=== PATIENT | male | born 1960 | race Caucasian/White ===

== ENCOUNTER → 2016-12-15 | Day surgery (SDC) | payer OTHER ==
[~2016-12-15] MED LIST: ASPIRIN EC 325 MG TAB PO ONE; DIAZEPAM 5 MG TAB ONE; DIAZEPAM 5 MG TAB PO ONE; ETOMIDATE 40 MG/20 ML INJ ONE; FAMOTIDINE 20 MG TAB ONE; FAMOTIDINE 20 MG TAB PO ONE; HEPARIN 10,000 UNIT/10 ML MDV ONE; IOPAMIDOL (ISOVUE-370) 150 ML BTL IV ONE; LIDOCAINE 1% 300 MG/30 ML SDV ONE; MIDAZOLAM 2 MG/2 ML VIAL ONE; NS 1,000 ML IV ONE; VERAPAMIL 5 MG/2 ML VIAL ONE; diphenhydrAMINE 25 MG CAP PO ONE; fentaNYL 100 MCG/2 ML INJ ONE
--- NOTE | 2016-12-15 07:55 | CPEKG ---
Heart Rate: 72 RR Interval: 833 P-R Interval: 200 QRSD Interval: 96 QT Interval: 404 QTC Interval: 443 P [place]: 54 QRS [place]: -67 T Wave [place]: 42 EKG Severity - ABNORMAL ECG - EKG Impression: SINUS RHYTHM EKG Impression: LEFT ANTERIOR FASCICULAR BLOCK Electronically Signed By: Valentin Nieto 16-Dec-2016 07:22:53
[2016-12-15 08:13] LABS: % IMMATURE GRANULYOCYTES 0.3 % (0.0-1.1); ABSOLUTE IMMATURE GRANULOCYTES 0.02 10^3/uL (0.00-0.10); ADD DIFF? NO; ADD MORPH? NO; ADD SCAN? NO; ATYPICAL LYMPHOCYTE FLAG 0 (0-99); FRAGMENT RBC FLAG 0 (0-99); HEMATOCRIT 45.9 % (40.0-51.0); HEMOGLOBIN 15.9 g/dL (13.7-17.5); LEFT SHIFT FLG 0 (0-99); LIPEMIA HEMOLYSIS FLAG 90 (0-99); MEAN CELL HEMOGLOBIN 30.5 pg (27.9-34.1); MEAN CELL HEMOGLOBIN CONCENTR. 34.6 g/dL (32.4-36.7); MEAN CELL VOLUME 88.1 fL (81.5-99.8); MEAN PLATELET VOLUME 10.8 fL (8.7-11.7); PLATELET CLUMPS FLAG 0 (0-99); PLATELET COUNT 268 10^3/uL (150-400); RED BLOOD CELL COUNT 5.21 10^6/uL (4.40-6.38); RED CELL DISTRIBUTION WIDTH 12.8 % (11.5-15.2)
[2016-12-15 08:22] LABS: INR 1.13 (0.83-1.16); PROTIME(PATIENT) 14.4 SEC (12.0-15.0)
[2016-12-15 08:46] LABS: ANION GAP 16 mEq/L (8-16); CALCIUM 9.4 mg/dL (8.5-10.4); CARBON DIOXIDE 19 mEq/l (22-31); CHLORIDE 102 mEq/L (97-110); CHOLESTEROL 120 mg/dL (140-220); CHOLESTEROL/HDL RATIO 2.07 RATIO (1.00-4.97); GLOMERULAR FILTRATION RATE > 60; GLUCOSE 69 mg/dL (70-100); HIGH DENSITY LIPOPROTEIN 58 mg/dL (40-65); LDL/HDL RATIO 0.86 RATIO (1.00-3.64); LOW DENSITY LIPOPROTEIN 50 mg/dL (80-100); MAGNESIUM 2.1 mg/dL (1.6-2.3); NON-HIGH DENSITY LIPOPROTEIN 62 mg/dL (90-129); POTASSIUM 4.3 mEq/L (3.5-5.2); SODIUM 137 mEq/L (134-144); TRIGLYCERIDE 62 mg/dL (40-150); VERY LOW DENSITY LIPOPROTEINS 12 mg/dL (8-25)
--- NOTE | 2016-12-15 10:58 | PDDXCAT ---
Diagnostic Cath Note - . Date: 12/15/16 Drying Machine Tender: Nava Intervention: none *Procedure 1. selective coronary angiography 2.left heart catheterization Indication: CCS Class IV Angina, Coronary artery disease with a calcium score > 400, Intermediate risk stress test Access: right radial *Materials Left Heart Cath size: 5F Left Heart Cath materials: JR4.0, JL3.5, pigtail *Findings- Selective Coronary Angiography LM: The Left Main is ~6 mm in size. It trifurcates into an LAD, Ramus and circumflex system. There is no evidence of flow-limiting obstruction and there is CAYDEN III flow throughout. LAD: The proximal LAD is ~3 mm in size. There is a 30% lesion at the ostium of the LAD. There is dense calcification noted in the proximal third of the LAD in the cinefluoroscopy consistent with underlying atherosclerosis. No flow- limiting obstruction identified and there is CAYDEN III flow throughout. The principle diagonal is also diffusely diseased. The maximal luminal stenosis is 30%. LCX: The LCX is ~3 mm in size and it immediately bifurcates into a large obtuse marginal branch, which is 2.75 mm in size and provides most of the blood flow to the posterior lateral aspect of the patient's heart, and to the circumflex proper. This is a small vessel, <2 mm in size and it has defuse luminal irregularities consistent with atherosclerosis. There is no evidence of flow- limiting obstruction. CAYDEN III flow throughout. RCA: The RCA is ~2.5 mm in size and it is dominant. There is a 50% lesion just distal to the RV branch by QCA.There is another 50% lesion distal to the acute marginal branch of the RCA. There is CAYDEN III flow. Ramus: The Ramus vessel is quite small and is ~1 mm in size. There is CAYDEN III flow throughout. *Findings- Left Heart Catheterization LVEDP: 18 mmHg AO: 111/62/84 mmHg LVEF: 65% LVG: The basal inferior wall is mildly tardikinetic, otherwise no segmental wall motion abnormalities. There is evidence of 2+ mitral regurgitation under pressurized injection which also was associated with ventricular ectopy. There is no evidence of Mitral valve prolapse. The visualized porion of thoracic aorta is normal in size with 3 sinuses of Valsalva most consistent with a trileaflet aortic valve. *Summary Complications: None Estimated Blood Loss: <50 ml. Closure Method: Assessment/Conclusion: 1. The patient has evidenced of diffuse atherosclerosis and is therefore at risk of a cardiac event including acute myocardial infarction. Aggressive risk factor modification 2. 7-14 day monitor 3.
== END | disposition home or self-care (01) ==
LOC: FCATH 07:32
PROVIDERS: ATTEND Internal Medicine Cardiovascular Disease
PROC: B2151ZZ Fluoroscopy of Left Heart using Low Osmolar Contrast (ICD-10-PCS; principal; 2016-12-15)
PROC: 4A023N7 Measurement of Cardiac Sampling and Pressure, Left Heart, Percutaneous Approach (ICD-10-PCS; principal; 2016-12-15)
PROC: B2111ZZ Fluoroscopy of Multiple Coronary Arteries using Low Osmolar Contrast (ICD-10-PCS; principal; 2016-12-15)
DX: I25.119 Atherosclerotic heart disease of native coronary artery with unspecified angina pectoris (principal); N52.9 Male erectile dysfunction, unspecified; I10 Essential (primary) hypertension; K21.9 Gastro-esophageal reflux disease without esophagitis; E78.00 Pure hypercholesterolemia, unspecified
CPT/HCPCS: C1887; J1644; J2250; J3010; Q9967

== ENCOUNTER → 2018-05-09 | Outpatient (CLI) | payer OTHER | LOC: FIMAGING 09:29 | PROVIDERS: ATTEND Specialist | DX: C61 Malignant neoplasm of prostate (principal); R94.8 Abnormal results of function studies of other organs and systems; M85.812 Other specified disorders of bone density and structure, left shoulder | CPT/HCPCS: 73030; 78306; A9503 ==

== ENCOUNTER → 2018-05-16 | Outpatient (CLI) | payer OTHER ==
[~2018-05-16] MED LIST changes: -ASPIRIN EC 325 MG TAB PO ONE; -DIAZEPAM 5 MG TAB ONE; -DIAZEPAM 5 MG TAB PO ONE; -ETOMIDATE 40 MG/20 ML INJ ONE; -FAMOTIDINE 20 MG TAB ONE; -FAMOTIDINE 20 MG TAB PO ONE; +GADOBUTROL 10 ML VIAL IVP ONE; -HEPARIN 10,000 UNIT/10 ML MDV ONE; -IOPAMIDOL (ISOVUE-370) 150 ML BTL IV ONE; -LIDOCAINE 1% 300 MG/30 ML SDV ONE; -MIDAZOLAM 2 MG/2 ML VIAL ONE; -NS 1,000 ML IV ONE; -VERAPAMIL 5 MG/2 ML VIAL ONE; -diphenhydrAMINE 25 MG CAP PO ONE; -fentaNYL 100 MCG/2 ML INJ ONE
== END | disposition home or self-care (01) ==
LOC: FIMAGING 12:40
PROVIDERS: ATTEND Specialist
DX: M89.9 Disorder of bone, unspecified (principal); S46.012A Strain of muscle(s) and tendon(s) of the rotator cuff of left shoulder, initial encounter; M75.52 Bursitis of left shoulder; C61 Malignant neoplasm of prostate
CPT/HCPCS: A9585

== ENCOUNTER 2018-06-14 05:35 | Inpatient (IN) | payer OTHER ==
--- NOTE | 2018-06-13 08:39 | GHP ---
[f rep st] PREOP HISTORY AND PHYSICAL HISTORY OF PRESENT ILLNESS: This is a 58-year-old gentleman, who has adenocarcinoma of the prostate. He has had a biopsy of the prostate and has proven T2b cancer, and he has an MRI that notes no pelvic or bone pathology. The capsule was intact. The right seminal vesicle may have a suspicious area, yet not overly concerning. He had a left proximal humerus lesion on an MRI and the MRI revealed that he had a benign endochondroma and a repeat x-ray of that in 6 months is recommended. His PSA as of 02/02/2018, was 19.5, and his MRI of 04/27 had a PI-RADS score of 4, and he had a prostate volume in 04/2018 of 56, and his pathology revealed a [employer] score 8 adenocarcinoma of the prostate. At the present time after a discussion of treatment options, he has planned on undergoing a radical prostatectomy with bilateral lymphadenectomy. The indications, complications, and options been discussed, and he appears to be well informed and he is admitted for the above procedure. PAST MEDICAL HISTORY: He has had some erectile dysfunction, elevated PSA, cardiac disease, hypertension, hypercholesterolemia, and the lesion noted on the left humerus. PAST SURGICAL HISTORY: Appendectomy, vasectomy. MEDICATIONS: Aspirin, supplements. ALLERGIES: Tetracycline. FAMILY HISTORY: Heart disease, prostate cancer, hypertension, liver cancer, diabetes. SOCIAL HISTORY: Current alcohol consumption mild. Nonsmoker. No substance use or abuse. REVIEW OF SYSTEMS: CARDIAC: Negative. RESPIRATORY: Negative. GI: Negative. ENDOCRINE: Negative. PHYSICAL EXAMINATION: VITAL SIGNS: Stable. CHEST: Clear. HEART: Regular rate and rhythm. ABDOMEN: Normal. No organomegaly, rebound or guarding. RECTAL: Normal rectal vault and prostate was nontender. Size is as noted above. Bilaterally symmetric. Normal palpable prostate with no fixation of the pelvis or rectum on exam. SKIN INSPECTION: Normal. NEUROLOGIC: Normal. ASSESSMENT AND PLAN: At the present time, he is admitted for a radical prostatectomy for the new diagnosis of prostate cancer, Hamida score 8, and he appears to be well informed and has given written and verbal consent. Copy requested to: Dr. Nava Mott /[id number]/MODL MTDD
[2018-06-14] MEDS ORDERED: LIDOCAINE 1% 2 ML INJ ID PRN (06:02)
[2018-06-14] MEDS ORDERED: LR 1,000 ML IV ONE (06:02)
[2018-06-14] MEDS ORDERED: ceFAZolin 2 GM/DEXTROSE 100 ML IV ONE (06:02)
--- NOTE | 2018-06-14 06:50 | PDANEPAE ---
ANE History of Present Illness prostate cancer ANE Past Medical History - Cardiovascular History Hx Hypertension: Yes Hx Arrhythmias: No Hx Chest Pain: No Hx Coronary Artery / Peripheral Vascular Disease: Yes Hx CHF / Valvular Disease: No Hx Palpitations: No - Pulmonary History Hx COPD: No Hx Asthma/Reactive Airway Disease: No Hx Recent Upper Respiratory Infection: No Hx Oxygen in Use at Home: No Hx Sleep Apnea: Yes Sleep Apnea Screening Result - Last Documented: Positive - Neurologic History Hx Cerebrovascular Accident: No Hx Seizures: No Hx Dementia: No Neurologic History Comment: febrile seizures as - Endocrine History Hx Diabetes: No Hypothyroid: No Hyperthyroid: No Obesity: no - Renal History Hx Renal Disorders: No - Liver History Hx Hepatic Disorders: No - Neurological & Psychiatric Hx Hx Neurological and Psychiatric Disorders: Yes Neurological / Psychiatric History Comment: tremor in left hand. right quad intermittently tingles - Cancer History Hx Cancer: Yes Cancer History Comment: prostate - Congenital Disorder History Hx Congenital Disorders: No - GI History GERD: no Hx Gastrointestinal Disorders: No - Other Health History Other Health History: tinnitus both ears - Chronic Pain History Chronic Pain: No - Surgical History Prior Surgeries: 1980 craniotomy. 1981 appendectomy ANE Review of Systems Review of systems is: negative Review of Systems: - Exercise capacity METS (RN): 5 METS ANE Patient History - Allergies Allergies/Adverse Reactions: tetracycline Allergy (Unknown, Verified 05/18/18 15:54) Other-Enter Comments - Home Medications Home medications: home medication list seen and reviewed Home Medications: Aspirin [Aspirin 81mg (*)] 162 mg PO DAILY 12/15/16 [Last Taken 06/03/18] Cholecalciferol Vit D3 [Vitamin D3 (*)] 1,000 units PO BID 12/15/16 [Last Taken 06/03/18] Ezetimibe [Zetia 10 MG (*)] 10 mg PO DAILY 12/15/16 [Last Taken 06/13/18] Herbals/Supplements -Info Only 1 ea PO DAILY 12/15/16 [Last Taken 06/03/18] Lisinopril [Zestril 10 mg (*)] 10 mg PO DAILY 12/15/16 [Last Taken 06/13/18] Dovray-3 Fatty Acids [Fish Oil 1000 mg (*)] 1,000 mg PO BID 12/15/16 [Last Taken 06/03/18] Rosuvastatin Calcium [Crestor 10mg (RX)] 10 mg PO DAILY 05/18/18 [Last Taken 10/24] Tadalafil [Cialis] 5 mg PO DAILY PRN 05/18/18 [Last Taken 06/01/18] - NPO status NPO Status: no food or drink >8 hours NPO Since - Liquids (Date): 06/13/18 NPO Since - Liquids (Time): 18:30 NPO Since - Solids (Date): 06/10/18 NPO Since - Solids (Time): 18:00 - Anes Hx Anes Hx: no prior problems - Smoking Hx Smoking Status: Never smoked - Alcohol Use Alcohol Use: Rarely - Family Anes Hx Family Anes Hx: none Family Hx Anesthesia Complications: father severe nausea/vomiting ANE Labs/Vital Signs - Vital Signs Blood Pressure: 124/72 Heart Rate: 80 Respiratory Rate: 18 O2 Sat (%): 94 Height: 177.8 cm Weight: 92.986 kg ANE Physical Exam - Airway Neck exam: FROM Mallampati Score: Class 2 Mouth exam: normal dental/mouth exam - Pulmonary Pulmonary: no respiratory distress, clear to auscultation - Cardiovascular Cardiovascular: regular rate and rhythym, no murmur, rub, or gallop - ASA Status ASA Status: II ANE Anesthesia Plan Anesthesia Plan: general endotracheal anesthesia
[2018-06-14] MEDS ORDERED: PROPOFOL 200 MG/20 ML VIAL ONE (06:55)
[2018-06-14] MEDS ORDERED: ROCURONIUM 50 MG/5 ML VIAL ONE (06:55)
[2018-06-14] MEDS ORDERED: LIDOCAINE 2% 5 ML SDV ONE (06:55)
[2018-06-14] MEDS ORDERED: fentaNYL 250 MCG/5 ML INJ ONE (06:55)
[2018-06-14] MEDS ORDERED: ROCURONIUM 100 MG/10 ML VIAL ONE ×2 (06:56→08:44)
--- NOTE | 2018-06-14 07:01 | PDHPUP ---
History & Physical Update H&P update statement: This history and physical update is based on an assessment of the patient which was completed after admission or registration (within 24 hours), but prior to the surgery/procedure. H&P update: H&P reviewed & patient examined, no change in patient's condition since H&P completed
[2018-06-14] MEDS ORDERED: BUPIVACAINE 0.5% 30 ML SDV ONE (07:56)
[2018-06-14] MEDS ORDERED: SURGIFLO MATRIX KIT WITH THROMBIN 8 ML TP ONE (09:12)
[2018-06-14] MEDS ORDERED: THROMBIN(HUM PLAS)/FIBRINOG/CA 5 ML VIAL TP ONE (09:12)
[2018-06-14] MEDS ORDERED: DEXAMETHASONE 4 MG/ML VIAL ONE (10:05)
[2018-06-14] MEDS ORDERED: HYDROmorphONE/DILAUDID 2 MG/ML INJ IVP PRN (10:25)
[2018-06-14] MEDS ORDERED: NALOXONE HCL 0.4 MG/ML INJ IVP PRN ×3 (10:25→14:01)
[2018-06-14] MEDS ORDERED: MEPERIDINE 25 MG/0.5 ML AMP IVP PRN (10:25)
[2018-06-14] MEDS ORDERED: PROMETHAZINE HCL 25 MG/ML INJ IVP PRN (10:25)
[2018-06-14] MEDS ORDERED: LR 500 ML IV PRN (10:25)
[2018-06-14] MEDS ORDERED: fentaNYL 100 MCG/2 ML INJ IVP PRN (10:25)
[2018-06-14] MEDS ORDERED: ONDANSETRON 4 MG/2 ML VIAL IVP PRN ×2 (10:25→11:24)
--- NOTE | 2018-06-14 10:25 | POSTANESTH ---
Post Anesthetic Evaluation Cardiovascular Status: Normal, Stable Respiratory Status: Normal, Stable Level of Consciousness/Mental Status: Can Participate in Eval, Moderately Sleepy Pain Control: Adequate, Prn Tx Ordered Nausea/Vomiting Control: Adequate, Prn Tx Ordered Complications Possibly Related to Anesthesia: None Noted
[2018-06-14] MEDS ORDERED: BUPIVACAINE 0.25% 30 ML SDV ONE (10:28)
[2018-06-14] MEDS ORDERED: BUPIVACAINE/EPI 0.5% 30 ML SDV ONE (10:28)
[2018-06-14] MEDS ORDERED: NEOSTIGMINE METHYLSULFATE 5 MG/5 ML SYR ONE (10:31)
[2018-06-14] MEDS ORDERED: ONDANSETRON 4 MG/2 ML VIAL ONE (10:31)
[2018-06-14] MEDS ORDERED: GLYCOPYRROLATE 0.2 MG/1 ML VIAL ONE ×2 (10:31)
[2018-06-14] MEDS ORDERED: fentaNYL 100 MCG/2 ML INJ ONE (10:48)
[2018-06-14] MEDS ORDERED: ZOLPIDEM TARTRATE 5 MG TAB PO PRN (11:24)
[2018-06-14] MEDS ORDERED: HYDROmorphONE/DILAUDID 6 MG/30 ML PCA IV PRN (11:24)
[2018-06-14] MEDS ORDERED: ACETAMINOPHEN 325 MG TAB PO PRN (11:24)
[2018-06-14] MEDS ORDERED: ONDANSETRON DISINTEGRATING 4 MG TAB PO PRN (11:24)
--- NOTE | 2018-06-14 11:24 | POSTOPPROG ---
Post Op Note Date of Operation: 06/14/18 (dictated) Surgeon: Mnaoj Price Second Language Tutor: Emerita Gaines Anesthesia: GET(General Endotracheal) Pre-op Diagnosis: prostate cancer Procedure: RA-RRP and PLND Inf/Abcess present in the surg proc area at time of surgery?: No EBL: 50-100 Drains: Onesimo Collins, Other (slade) Specimen(s): nodes, prostate
--- NOTE | 2018-06-14 11:28 | GOP ---
[f rep st] OPERATIVE REPORT DATE OF OPERATION: 06/14/2018 SURGEON: Manoj Price MD SANITARY AIDE: Emerita Gaines CFA. PREOPERATIVE DIAGNOSIS: Prostate cancer. POSTOPERATIVE DIAGNOSIS: Prostate cancer. PROCEDURE PERFORMED: Robotic-assisted radical prostatectomy and bilateral pelvic lymph node dissecti on. FINDINGS: SPECIMENS: Bilateral lymph nodes as well as the prostate and seminal vesicles. He will be admitted for postoperative care. I will discuss the issues with his . ESTIMATED BLOOD LOSS: Per Anesthesia. DESCRIPTION OF PROCEDURE: After undergoing general anesthesia, being prepped and draped in normal st erile fashion in the appropriate position for the robot to come in between the legs, the time-out was made and was appropriate. At that point, a supraumbilical incision was made and a Veress needle reed augusto into his abdomen and the intraabdominal pressure insufflated to 15 mmHg pressure. Then I was abl e to pass a 12 mm camera port under direct vision and then placed the three 8 mm robot arm ports, and a 12 mm advertising assistant manager port. Inspection of the abdomen revealed no intraabdominal adhesions or pathology and I was able to identify the vas deferens and carried the incision over the peritoneum over those down to where they course into the posterior prostatic space and dissected the rectum off the posteri or part of the prostate. Identified the vasa and provide hemostasis of those and transected and diss ected out each the right and left seminal vesicles. Hemostasis provided with Hem-O-Locks and then at that point dropped down the anterior bladder and identified the endopelvic fascia on the right and l eft sides, which was incised. I carried that down and transected the pubic prostatic ligaments on geraldine th the right and left sides. Deep dorsal vein was ligated with two #0 Vicryl sutures as an M stitch technique. We then defatted the anterior prostate and focused attention to the bladder neck and inci sed the bladder neck circumferentially and on the dissection of the bladder base on the left side of the prostate it actually draped over and I made a small cystotomy. After managing the vasculature on the left side with Hem-O-Locks and provide hemostasis and then brought the seminal vesicles and the prostate reflected to the left side so I could manage the right vascular space. He did have signific ant inflammation and irritation along the right side of the base of the prostate and thickening along the seminal vesicles, so it took the dissection out to where I tried to make sure there was no infla mmatory reaction and then actually carried that dissection lateral. I did identify the major neurova scular bundle on the right side and through the dissection was able to actually sweep that separate f rom the lateral part of the prostate and appeared that the capsule was intact from that dissection. Hemostasis with Hem-O-Locks. At that point, focused our attention to the anterior prostate and ureth ra and sharply dissected that down to where had normal-appearing apical part of the prostate that had no gross abnormality identified. Then at that point closed the cystotomy on the left side with 3-0 Vicryl and then used a Quill suture to do the urethrovesical anastomosis. This was bridged with the Acevedo catheter, it irrigated clear and there was no leak. Tissue sealing glue was placed around the anastomosis. At that point, the pelvic lymph node dissection was carried out from the mid aspect of the external iliac vein up to its bifurcation. I identified the obturator nerve and preserved it and Hem-o-Locks were used to provide hemostasis and lymphostasis on no segments. There was no gross nod al disease as far as the findings. Both the right and left sides were done. They were hemostatic an d lymphostatic postprocedure and at that point, the specimen was placed in the bag, placed a Onesimo- Collins drain that came out through the left robot 8 mm port site, was sewn in place with a silk. Then the advertising assistant manager port was closed with the fascial suture closure device using 0 Vicryl and then opened the abdominal incision lateral from right to left to the point I could remove the specimen and then t he posterior rectus sheath, linea alba, anterior rectus sheath were closed with 0 Vicryl running and it was felt there was a good closure. Hemostasis was noted. Subcutaneous tissues were clear and int radermal wound closures were done at all sites. Estimated blood loss once again per Anesthesia. COMPLICATIONS: None. /[id number]/MODL
--- NOTE | 2018-06-14 12:15 | PDMN ---
Medical Necessity Medical necessity: MCG: S960 prostatectomy 1 day: OP: -JASON and PLND - AUTH# [id number] APPROVED FOR CPT CODES 42384 AND 01427 TO BE DONE INPATIENT.
[2018-06-14] MEDS ORDERED: morphINE PCA 30 MG/30 ML PCA IV PRN (14:01)
[2018-06-14] MEDS ORDERED: SOLIFENACIN SUCCINATE 5 MG TAB PO PRN (14:24)
[2018-06-14] MEDS: D5W 1/2 NS W/ 20 KCl/L 1,000 ML IV SCH ×2 (16:13→23:53)
[2018-06-15 04:53] LABS: PLATELET COUNT 266 10^3/uL (150-400)
--- NOTE | 2018-06-15 09:04 | SOAPPROG ---
SOAP Progress Note Assessment/Plan: Assessment: Prostate cancer Acute POD #1, all is well, DC pending today AM progress Plan: DC if pt is progressing 06/15/18 10:35 Subjective: no pain, doing well Objective: Vital Signs Temp Pulse Resp BP Pulse Ox 37.0 C 69 18 112/64 98 06/15/18 04:35 06/15/18 07:41 06/15/18 07:41 06/15/18 07:41 06/15/18 07:41 Laboratory Results 06/15/18 04:40 06/15/18 04:40 06/14/18 06/15/18 06/16/18 05:59 05:59 05:59 Intake Total 4140 Output Total 4593 Balance -453 Physical Exam - Physical Exam General Appearance: alert Neck: supple Respiratory: No respiratory distress Cardiac/Chest: regular rate, rhythm Abdomen: soft, other (incisions clean, PITER drain site ok) Male Genitalia: normal genitalia (slade draining) Back: No CVA tenderness Skin: warm/dry Extremities: No calf tenderness, No Mark's sign Neuro/Psych: alert, oriented x 3 ICD10 Worksheet Patient Problems: Problems Problem Status Onset Prostate cancer Acute - ICD10 Problem Qualifiers (1) Prostate cancer
[2018-06-15] MEDS: EZETIMIBE 10 MG TAB PO SCH (10:15)
[2018-06-15] MEDS: LISINOPRIL 10 MG TAB PO SCH (10:15)
[2018-06-15] MEDS: ROSUVASTATIN CALCIUM 10 MG TAB PO SCH (10:15)
[2018-06-15] MEDS: ASPIRIN EC 81 MG TAB PO SCH (10:15)
--- NOTE | 2018-06-15 11:07 | ASMTLACE ---
LACE Length of stay for Answers: 1 day current admission Acuity / Level of Answers: Yes Care: Did the patient have an inpatient admission? Comorbidities - select Answers: Any tumor (including all that apply lymphoma or leukemia) Coronary Artery Disease # of Emergency department Answers: 0 visits in the last 6 months Score: 8 Date Signed: 06/15/2018 11:07 AM Electronically Signed By:Ann Wyman RN
--- NOTE | 2018-06-15 11:15 | ASMTCMCOM ---
CM Note CM Note Notes: Patient post radical prostatectomy. Per physician medically cleared for discharge. No needs identiifed. CM available should needs arise. Plan: Dc to home no needs. Date Signed: 06/15/2018 11:14 AM Electronically Signed By:Ann Wyman RN
[2018-06-16] MEDS ORDERED: SENNOSIDES/DOCUSATE SODIUM TAB PO ONE (07:47)
--- NOTE | 2018-06-16 07:47 | SOAPPROG ---
SOAP Progress Note Assessment/Plan: Assessment: Prostate cancer Acute POD #2, all is well, DC pending today AM progress Plan: DC if pt is progressing 06/16/18 07:46 Subjective: no pain Objective: Vital Signs Temp Pulse Resp BP Pulse Ox 37.2 C 80 16 106/57 L 92 06/16/18 03:11 06/16/18 03:11 06/16/18 03:11 06/16/18 03:11 06/16/18 03:11 Laboratory Results 06/15/18 04:40 06/16/18 04:34 06/15/18 06/16/18 06/17/18 05:59 05:59 05:59 Intake Total 6264 3476 Output Total 9571 5337 Balance -453 -4629 Physical Exam - Physical Exam General Appearance: alert Neck: supple Respiratory: No respiratory distress Cardiac/Chest: regular rate, rhythm Abdomen: distended, other (mild post op distention not concerning at this time) Male Genitalia: normal genitalia (cath ok) Back: No CVA tenderness Skin: warm/dry Neuro/Psych: alert, oriented x 3 ICD10 Worksheet Patient Problems: Problems Problem Status Onset Prostate cancer Acute - ICD10 Problem Qualifiers (1) Prostate cancer
[2018-06-16 08:59] VITALS: BP 101/58
[2018-06-16] MEDS: ROSUVASTATIN CALCIUM 10 MG TAB PO SCH (10:38)
[2018-06-16] MEDS: EZETIMIBE 10 MG TAB PO SCH (10:38)
[2018-06-16] MEDS: LISINOPRIL 10 MG TAB PO SCH (10:38)
[2018-06-16] MEDS: ASPIRIN EC 81 MG TAB PO SCH (10:38)
== END 2018-06-16 13:33 | disposition home or self-care (01) | DRG 708 ==
LOC: F1N 05:35
PROVIDERS: ADMIT Specialist; ATTEND Specialist
DX: C61 Malignant neoplasm of prostate (principal); I25.10 Atherosclerotic heart disease of native coronary artery without angina pectoris; D16.02 Benign neoplasm of scapula and long bones of left upper limb; N52.9 Male erectile dysfunction, unspecified; E78.00 Pure hypercholesterolemia, unspecified; H93.13 Tinnitus, bilateral; G25.0 Essential tremor
CPT/HCPCS: J0690; J1100; J2405; J2704; J2710; J3010